=== PATIENT | female | born 1970 | race American Indian/Alaskan Native ===

== ENCOUNTER 2020-08-14 00:58 | Observation (INO) | payer SELFPAY ==
[2020-08-14] MEDS ORDERED: ASPIRIN 325 MG TAB PO ONE (01:16)
[2020-08-14] MEDS ORDERED: hydrALAZINE 20 MG/1 ML INJ IV ONE (02:07)
--- NOTE | 2020-08-14 02:10 | Emergency Department Report ---
ED Chest Pain HPI - General Chief Complaint: Chest Pain Stated Complaint: CHEST PAIN PUI?: No Time Seen by Provider: 08/14/20 01:45 Source: patient Mode of arrival: Stretcher Limitations: No Limitations - History of Present Illness Initial Comments: Patient is a 50-year-old female that presents emergency room with complaints of chest pain. Patient states the chest pain is in the right side of her chest. Patient states the chest pain is a 5 out of 10. Patient states that the chest pain is better with rest and worse with movement and palpation. Patient states that she called 911 because her chest was hurting and her blood pressure was 250/120 at home. Patient states that the ambulance picked her up and gave her aspirin and 2 nitro's. Patient states her blood pressure with EMS was 256/125. Patient states that she has been off of her blood pressure medication for 2 months. Patient states she just has not followed up with her doctor for refills or blood pressure medication changes. Patient states she is also having a headache. Patient states her headache is a dull nagging pain. Patient states is a 2 out of 10. Patient states her headache started today. Patient denies recent travel. Patient denies recent international travel. Patient denies exposure to the novel coronavirus. Patient denies sick contacts. Patient denies fever and chills. Patient denies cough. Patient denies diarrhea. Patient denies coming in contact with anybody with symptoms of the novel coronavirus. MD Complaint: chest pain -: Sudden Onset: during rest Pain Location: right chest Pain Radiation: none Severity: severe Severity scale (0 -10): 5 Quality: sharp Consistency: constant Improves With: rest Worsens With: palpation, movement re: denies: nausea, vomting, diaphoresis, dyspnea, sense of impending doom Other Symptoms: denies: cough, fever, syncope, rash, acid taste in mouth, leg swelling, palpitations, burping Treatments Prior to Arrival: aspirin, nitroglycerin Aspirin use within the Past 7 Days: (0) No - Related Data On Oral Contraceptives: No Allergies Allergy/AdvReac Type Severity Reaction Status Date / Time shellfish derived Allergy Hives Verified 08/14/20 01:16 Heart Score - HEART Score History: Slightly suspicious EKG: Non-specific Age: 45-65 Risk factors: 1-2 risk factors Troponin: < normal limit HEART Score: 3 ED Review of Systems ROS: Stated complaint: CHEST PAIN Other details as noted in HPI Constitutional: denies: chills, fever Eyes: denies: eye pain, eye discharge, vision change ENT: denies: ear pain, throat pain Respiratory: denies: cough, shortness of breath, wheezing Cardiovascular: chest pain. denies: palpitations Endocrine: no symptoms reported Gastrointestinal: denies: abdominal pain, nausea, diarrhea Genitourinary: denies: urgency, dysuria, discharge Musculoskeletal: denies: back pain, joint swelling, arthralgia Skin: denies: rash, lesions Neurological: as per HPI, headache. denies: weakness, paresthesias Psychiatric: denies: anxiety, depression Hematological/Lymphatic: denies: easy bleeding, easy bruising ED Past Medical Hx - Past Medical History Previous Medical History?: Yes Hx Hypertension: Yes - Surgical History Past Surgical History?: Yes Hx Cholecystectomy: Yes - Family History Family history: no significant - Social History Smoking Status: Current Every Day Smoker Substance Use Type: None ED Physical Exam - General Limitations: No Limitations General appearance: alert, in no apparent distress - Head Head exam: Present: atraumatic, normocephalic - Eye Eye exam: Present: normal appearance, PERRL Pupils: Present: normal accommodation - ENT ENT exam: Present: mucous membranes moist - Neck Neck exam: Present: normal inspection - Respiratory Respiratory exam: Present: normal lung sounds bilaterally, chest wall tenderness (Right-sided chest tenderness. Palpation of the right-sided chest reproduces the symptoms.). Absent: respiratory distress - Cardiovascular Cardiovascular Exam: Present: regular rate, normal rhythm. Absent: systolic murmur, diastolic murmur, rubs, gallop - GI/Abdominal GI/Abdominal exam: Present: soft, normal bowel sounds - Extremities Exam Extremities exam: Present: normal inspection - Back Exam Back exam: Present: normal inspection - Neurological Exam Neurological exam: Present: alert, oriented X3 - Psychiatric Psychiatric exam: Present: normal affect, normal mood - Skin Skin exam: Present: warm, dry, intact, normal color. Absent: rash ED Course Vital Signs 08/14/20 08/14/20 08/14/20 01:16 02:30 02:36 Temperature 97.6 F Pulse Rate 80 109 H 84 Respiratory 18 17 Rate Blood Pressure 208/112 209/112 Blood Pressure 195/111 [Left] O2 Sat by Pulse 100 99 Oximetry 08/14/20 08/14/20 08/14/20 02:46 03:16 03:42 Temperature Pulse Rate 95 H Respiratory 22 Rate Blood Pressure 188/86 189/97 188/86 Blood Pressure [Left] O2 Sat by Pulse 100 100 97 Oximetry 08/14/20 08/14/20 08/14/20 03:45 03:46 04:00 Temperature Pulse Rate 101 H Respiratory 18 18 Rate Blood Pressure 137/63 153/69 Blood Pressure 137/63 [Left] O2 Sat by Pulse 100 100 Oximetry 08/14/20 04:16 Temperature Pulse Rate Respiratory Rate Blood Pressure 153/69 Blood Pressure [Left] O2 Sat by Pulse 100 Oximetry - Reevaluation(s) Reevaluation #1: 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 Patient will be given hydralazine 20 mg IV. 08/14/20 02:10 Reevaluation #2: Patient's blood pressure is much better. Patient's headache is improving but still there. Patient will be given Tylenol 1 g. 08/14/20 03:49 Reevaluation #3: I discussed all results with patient. I discussed plan of care with patient. Patient agrees with plan of care and admission. Patient to be admitted to the hospitalist service. 08/14/20 05:31 - Consultations Consultation #1: Hospitalist consulted for admission. Hospitalist to admit patient. 08/14/20 05:31 RAMÓN score - Ramón Score Age > 65: (0) No Aspirin use within the Past 7 Days: (0) No 3 or more CAD Risk Factors: (0) No 2 or more Angina events in past 24 hrs: (0) No Known CAD with more than 50% Stenosis: (0) No Elevated Cardiac Markers: (0) No ST Deviation Greater than 0.5mm: (0) No RAMÓN Score: 0 ED Medical Decision Making - Lab Data Result diagrams: 08/14/20 01:37 08/14/20 01:37 - EKG Data -: EKG Interpreted by Me EKG shows normal: sinus rhythm, axis, intervals, QRS complexes, ST-T waves Rate: normal - Radiology Data Radiology results: report reviewed, image reviewed CHEST 1 VIEW 0138 INDICATION / CLINICAL INFORMATION: Chest Pain COMPARISON: None available. FINDINGS: SUPPORT DEVICES: None HEART / MEDIASTINUM: Mild cardiac prominence LUNGS / PLEURA: Overlying artifact causes increased density in the left base. Mildly congested appearance is seen. There may be diffuse interstitial edema as well with diffuse increased markings noted. I cannot exclude superimposed interstitial pneumonitis. Clinical correlation and follow-up are suggested. No pneumothorax. CT HEAD WITHOUT CONTRAST INDICATION: narayanan TECHNIQUE: All CT scans at this location are performed using CT dose reduction for ALARA by means of automated exposure control. COMPARISON: None available. FINDINGS: Note: Motion artifact is seen on the lower slices. BRAIN: No hemorrhage or mass effect are seen. No evidence of acute infarction is noted. ORBITS: Normal as visualized. SOFT TISSUES OF HEAD: Normal. CALVARIUM: Normal. VISUALIZED PARANASAL SINUSES AND MASTOID AIR CELLS: Clear. ADDITIONAL FINDINGS: None. IMPRESSION: No acute intracranial abnormality. - Medical Decision Making Patient is a 50-year-old female that presents emergency room with complaints of chest pain. Patient's chest pain was more on the right side of her chest on arr ival. Patient was brought in by EMS. EMS gave the patient 2 nitros and aspirin. Patient complained of headache after the nitro was given. Patient was found to 50/120 upon arrival to the ER. Patient was given 20 mg of hydralazine and the patient's blood pressure improved dramatically. Since the patient had a high blood pressure and a headache, a head CT was done which was negative for acute findings. Patient had a chest x-ray which showed pulmonary edema. Patient's labs were essentially unremarkable. Patient had a BNP of 400 and a negative troponin. Patient admitted to the hospitalist service for further evaluation treatment and rule out ACS. Prior to admission, the patient was giv en Lasix. - Differential Diagnosis Hypertensive emergency, chest pain, headache, ACS, Critical Care Time: Yes Critical care time in (mins) excluding proc time.: 35 Critical care attestation.: If time is entered above; I have spent that time in minutes in the direct care of this critically ill patient, excluding procedure time. Critical Care Time: 35 minutes ED Disposition Clinical Impression: Hypertensive emergency, Pulmonary edema cardiac cause, Noncompliance, Cardiomegaly Headache Qualifiers: Headache type: unspecified Headache chronicity pattern: acute headache Intractability: not intractable Qualified Code(s): R51.9 - Headache, unspecified Chest pain Qualifiers: Chest pain type: unspecified Qualified Code(s): R07.9 - Chest pain, unspecified Disposition: 09 OP ADMIT IP TO THIS HOSP Is pt being admited?: Yes Does the pt Need Aspirin: No Condition: Critical Instructions: Chest Pain (ED), Pulmonary Edema (ED), Hypertension (ED) Time of Disposition: 05:28
[2020-08-14 02:18] LABS: Hematocrit 40.4 % (30.3-42.9); Hemoglobin 13.1 gm/dl (10.1-14.3); Mean Corpuscular HGB Conc 33 % (30-34); Mean Corpuscular Volume 89 fl (79-97); Platelet Count 343 K/mm3 (140-440); Red Blood Count 4.54 M/mm3 (3.65-5.03); Red Cell Distribution Width 16.4 % (13.2-15.2)
--- NOTE | 2020-08-14 02:24 | XRay Report ---
CHEST 1 VIEW 0138 INDICATION / CLINICAL INFORMATION: Chest Pain COMPARISON: None available. FINDINGS: SUPPORT DEVICES: None HEART / MEDIASTINUM: Mild cardiac prominence LUNGS / PLEURA: Overlying artifact causes increased density in the left base. Mildly congested appear ance is seen. There may be diffuse interstitial edema as well with diffuse increased markings noted. I cannot exclude superimposed interstitial pneumonitis. Clinical correlation and follow-up are sugges daren. No pneumothorax. ADDITIONAL FINDINGS: No significant additional findings. Signer Name: Nazario Laughlin MD Signed: 08/14/2020 2:20 AM Workstation Name: [id number]
[2020-08-14 02:37] LABS: Blood Urea Nitrogen 15 mg/dL (7-17); Hemolysis Index 5
[2020-08-14] MEDS ORDERED: amLODIPine 5 MG TAB PO ONE (02:43)
[2020-08-14 02:53] LABS: BUN/Creatinine Ratio 21
--- NOTE | 2020-08-14 03:06 | Cat Scan Report ---
CT HEAD WITHOUT CONTRAST INDICATION: narayanan TECHNIQUE: All CT scans at this location are performed using CT dose reduction for ALARA by means of automated exposure control. COMPARISON: None available. FINDINGS: Note: Motion artifact is seen on the lower slices. BRAIN: No hemorrhage or mass effect are seen. No evidence of acute infarction is noted. ORBITS: Normal as visualized. SOFT TISSUES OF HEAD: Normal. CALVARIUM: Normal. VISUALIZED PARANASAL SINUSES AND MASTOID AIR CELLS: Clear. ADDITIONAL FINDINGS: None. IMPRESSION: No acute intracranial abnormality. Signer Name: Nazario Laughlin MD Signed: 08/14/2020 3:01 AM Workstation Name: [id number]
[2020-08-14] MEDS ORDERED: ACETAMINOPHEN 500 MG TAB PO ONE (03:37)
[2020-08-14] MEDS ORDERED: FUROSEMIDE 40 MG/4 ML INJ IV ONE (05:28)
[2020-08-14] MEDS ORDERED: NITROGLYCERIN 0.4 MG TAB SUBL SL PRN (06:22)
[2020-08-14] MEDS ORDERED: MORPHINE 4 MG/1 ML INJ IV PRN (06:22)
[2020-08-14] MEDS ORDERED: ACETAMINOPHEN 325 MG TAB PO PRN (06:22)
--- NOTE | 2020-08-14 06:30 | History and Physical Report ---
History of Present Illness Date of examination: 08/14/20 Date of admission: 08/14/20 05:31 Chief complaint: Chest pain Headache History of present illness: 50-year-old female with history of hypertension was brought to the emergency room with complaints of chest pain. chest pain is in the right side of her chest, 5 out of 10. chest pain is better with rest and worse with movement and palpation. Patient states that she called 911 because her chest was hurting and her blood pressure was 250/120 at home. Patient states that the ambulance picked her up and gave her aspirin and 2 nitro's. Patient states her blood pressure with EMS was 256/125. Patient has been off of her blood pressure medication for 2 months. Patient states she just has not followed up with her doctor for refills or blood pressure medication changes. In the emergency room patient is also complained of headache. Initial cardiac enzyme is negative. Past History Past Medical History: hypertension Medications and Allergies Allergies Allergy/AdvReac Type Severity Reaction Status Date / Time shellfish derived Allergy Hives Verified 08/14/20 01:16 Review of Systems Cardiovascular: chest pain Neurological: headaches Exam - Constitutional Vitals: Temp Pulse Resp BP Pulse Ox 97.6 F 95 H 18 154/73 100 08/14/20 01:16 08/14/20 05:33 08/14/20 05:33 08/14/20 05:33 08/14/20 05:33 General appearance: Present: no acute distress - EENT Eyes: Present: PERRL ENT: hearing intact, clear oral mucosa - Neck Neck: Present: supple, normal ROM - Respiratory Respiratory effort: normal Respiratory: bilateral: diminished - Cardiovascular Rhythm: regular Heart Sounds: Present: S1 & S2. Absent: rub, click - Extremities Extremities: pulses symmetrical, No edema Peripheral Pulses: within normal limits - Abdominal General gastrointestinal: Present: soft, non-tender, non-distended, normal bowel sounds Female genitourinary: Present: normal - Integumentary Integumentary: Present: clear, warm, dry - Musculoskeletal Musculoskeletal: gait normal, strength equal bilaterally - Psychiatric Psychiatric: appropriate mood/affect, intact judgment & insight - Neurologic Neurologic: CNII-XII intact, moves all extremities HEART Score - HEART Score EKG: Non-specific Age: 45-65 Risk factors: 1-2 risk factors Troponin: Troponin T < 0.010 ng/mL (0.00-0.029) 08/14/20 04:01 Troponin: < normal limit Results - Labs CBC & Chem 7: 08/14/20 01:37 08/14/20 01:37 Labs: Laboratory Last Values WBC 11.9 K/mm3 (4.5-11.0) H 08/14/20 01:37 RBC 4.54 M/mm3 (3.65-5.03) 08/14/20 01:37 Hgb 13.1 gm/dl (10.1-14.3) 08/14/20 01:37 Hct 40.4 % (30.3-42.9) 08/14/20 01:37 MCV 89 fl (79-97) 08/14/20 01:37 MCH 29 pg (28-32) 08/14/20 01:37 MCHC 33 % (30-34) 08/14/20 01:37 RDW 16.4 % (13.2-15.2) H 08/14/20 01:37 Plt Count 343 K/mm3 (140-440) 08/14/20 01:37 Lymph # (Auto) Associate Chemist 08/14/20 01:37 Sodium 137 mmol/L (137-145) 08/14/20 01:37 Potassium 3.8 mmol/L (3.6-5.0) 08/14/20 01:37 Chloride 102.0 mmol/L (98-107) 08/14/20 01:37 Carbon Dioxide 26 mmol/L (22-30) 08/14/20 01:37 Anion Gap 13 mmol/L 08/14/20 01:37 BUN 15 mg/dL (7-17) 08/14/20 01:37 Creatinine 0.7 mg/dL (0.6-1.2) 08/14/20 01:37 Estimated GFR > 60 ml/min 08/14/20 01:37 BUN/Creatinine Ratio 21 % 08/14/20 01:37 Glucose 88 mg/dL (65-100) 08/14/20 01:37 Calcium 9.0 mg/dL (8.4-10.2) 08/14/20 01:37 Troponin T < 0.010 ng/mL (0.00-0.029) 08/14/20 04:01 NT-Pro-B Natriuret Pep 400.2 pg/mL (0-450) 08/14/20 04:01 - Imaging and Cardiology Chest x-ray: image reviewed CT Scan - head: image reviewed Assessment and Plan - Patient Problems (1) Chest pain Current Visit: Yes Status: Acute Qualifiers: Chest pain type: unspecified Qualified Code(s): R07.9 - Chest pain, unspecified Plan to address problem: Admit the patient to the medical floor telemetry. Aspirin 325 mg p.o. daily. Lipitor 80 mg p.o. daily. We will do the serial cardiac enzyme. We also do a echocardiogram. Will consult cardiology to see the patient. We will also check lipid panel. SCD for DVT prophylaxis because of hypertension (2) Headache Current Visit: Yes Status: Acute Qualifiers: Headache type: unspecified Headache chronicity pattern: acute headache Intractability: not intractable Qualified Code(s): R51.9 - Headache, unspecified Plan to address problem: Tylenol 650 mg p.o. every 6 hours as needed. Headache most likely from hypertension. We monitored the blood pressure closely. Morphine 2 mg IV every 4 hours as needed (3) Hypertensive emergency Current Visit: Yes Status: Acute Plan to address problem: Put the patient on lisinopril 5 mg p.o. daily. Hydralazine 10 mg IV every 6 hours as needed. We will monitor the blood pressure closely. We will drop the blood pressure slowly. We also consult cardiology for evaluation and treatment. We will also check echocardiogram
[2020-08-14] MEDS ORDERED: hydrALAZINE 20 MG/1 ML INJ IV PRN (06:35)
[2020-08-14 06:51] LABS: Anisocytosis 1+; Total Cells Counted 100
[2020-08-14 06:52] LABS: Platelet Estimate Consistent w Auto
[2020-08-14] MEDS ORDERED: PANTOPRAZOLE 40 MG TAB PO SCH (07:30)
[2020-08-14 08:39] LABS: Blood Urea Nitrogen 12 mg/dL (7-17); Calcium 9.1 mg/dL (8.4-10.2); Chol/HDL Ratio 2.66 %; HDL Cholesterol 53 mg/dL (40-59); Hemolysis Index 12; LDL Cholesterol,Direct 89 mg/dL (50-130)
[2020-08-14 08:46] LABS: BUN/Creatinine Ratio 20
[2020-08-14 08:54] LABS: Basophils # (Auto) 0.1 K/mm3 (0.0-0.1); Basophils % (Auto) 0.5 % (0.0-1.8); Eosinophils # (Auto) 0.3 K/mm3 (0.0-0.4); Eosinophils % (Auto) 2.2 % (0.0-4.3); Hematocrit 42.7 % (30.3-42.9); Hemoglobin 13.5 gm/dl (10.1-14.3); Lymphocytes % (Auto) 22.7 % (13.4-35.0); Mean Corpuscular HGB Conc 32 % (30-34); Mean Corpuscular Volume 89 fl (79-97); Monocytes # (Auto) 0.7 K/mm3 (0.0-0.8); Monocytes % (Auto) 5.1 % (0.0-7.3); Platelet Count 325 K/mm3 (140-440); Red Blood Count 4.78 M/mm3 (3.65-5.03); Red Cell Distribution Width 16.7 % (13.2-15.2)
[2020-08-14] MEDS ORDERED: LISINOPRIL 5 MG TAB PO SCH (10:00)
[2020-08-14] MEDS ORDERED: DOCUSATE SODIUM 100 MG CAP PO SCH (10:00)
[2020-08-14 10:10] VITALS: BP 149/83
--- NOTE | 2020-08-14 10:33 | Event Note ---
Date: 08/14/20 Discussed with attending. Patient apparently being discharged. Consult being withdrawn.
[2020-08-15] MEDS ORDERED: ASPIRIN EC 325 MG TAB PO SCH (10:00)
== END 2020-08-14 10:30 | disposition home or self-care (01) ==
LOC: ED 00:58 → 4A 05:31
PROVIDERS: ADMIT Hospitalist; ATTEND Internal Medicine
DX: I16.1 Hypertensive emergency (principal); R07.89 Other chest pain; R51.9 Headache, unspecified; I51.7 Cardiomegaly; J81.1 Chronic pulmonary edema; F17.200 Nicotine dependence, unspecified, uncomplicated; Z91.14 Patient's other noncompliance with medication regimen
CPT/HCPCS: 36415; 70450; 71045; 80048; 80061; 83880; 84484; 85025; 93005; 96374; 96375; 99285; G0378; J0360; J1940; 85007

== ENCOUNTER 2020-09-03 20:36 | Observation (INO) | payer OTHER ==
[2020-09-03] MEDS ORDERED: ASPIRIN 325 MG TAB PO ONE (21:24)
--- NOTE | 2020-09-03 21:25 | Event Note ---
ED Screening Note Date of service: 09/03/20 Time: 21:22 ED Screening Note: 50-year-old female with a past medical history of congestive heart failure and hypertension presents to the ER today complaining of left-sided sharp chest pain. Started this evening while she was at work. States been constant in nature. She reports "a little shortness of breath". 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 She is scheduled for her first primary care doctor visit in September. She states her last stress test was a little bit over 5 years ago. Past medical history: Congestive heart failure and hypertension and tobacco use. She denies CAD/MD This initial assessment/diagnostic orders/clinical plan/treatment(s) is/are subject to change based on patients health status, clinical progression and re- assessment by fellow clinical providers in the ED. Further treatment and workup at subsequent clinical providers discretion. Patient/guardian urged not to elope from the ED as their condition may be serious if not clinically assessed and managed. Initial orders include: Cardiac work-up
[2020-09-03 21:54] LABS: Basophils # (Auto) 0.1 K/mm3 (0.0-0.1); Basophils % (Auto) 0.5 % (0.0-1.8); Eosinophils # (Auto) 0.6 K/mm3 (0.0-0.4); Eosinophils % (Auto) 4.9 % (0.0-4.3); Hematocrit 40.1 % (30.3-42.9); Hemoglobin 13.1 gm/dl (10.1-14.3); Lymphocytes # (Auto) 4.4 K/mm3 (1.2-5.4); Lymphocytes % (Auto) 35.8 % (13.4-35.0); Mean Corpuscular HGB Conc 33 % (30-34); Mean Corpuscular Volume 89 fl (79-97); Monocytes # (Auto) 0.7 K/mm3 (0.0-0.8); Monocytes % (Auto) 5.7 % (0.0-7.3); Platelet Count 387 K/mm3 (140-440); Red Blood Count 4.53 M/mm3 (3.65-5.03); Red Cell Distribution Width 16.7 % (13.2-15.2)
[2020-09-03 22:00] LABS: Alanine Aminotransferase 33 units/L (7-56); Albumin 4.2 g/dL (3.9-5); Blood Urea Nitrogen 12 mg/dL (7-17); Hemolysis Index 6
--- NOTE | 2020-09-03 22:04 | XRay Report ---
CHEST 2 VIEWS INDICATION / CLINICAL INFORMATION: Chest Pain. FINDINGS: SUPPORT DEVICES: None. HEART / MEDIASTINUM: No significant abnormality. LUNGS / PLEURA: No significant pulmonary or pleural abnormality. No pneumothorax. ADDITIONAL FINDINGS: No significant additional findings. IMPRESSION: 1. No acute findings. Signer Name: Edu Monet MD Signed: 09/03/2020 9:59 PM Workstation Name: [id number]
[2020-09-03 22:10] LABS: INR 0.9 (0.87-1.13)
[2020-09-03 22:12] LABS: BUN/Creatinine Ratio 17
[2020-09-03] MEDS ORDERED: POTASSIUM CHLORIDE ER 20 MEQ TAB PO ONE (22:39)
--- NOTE | 2020-09-03 22:40 | Emergency Department Report ---
ED General Adult HPI - General Chief complaint: Chest Pain Stated complaint: CHEST PAIN PUI?: No Time Seen by Provider: 09/03/20 21:22 Source: patient, EMS ( EMS documentation not available at time of chart dictation ), RN notes reviewed, old records reviewed Mode of arrival: Stretcher Limitations: No Limitations - History of Present Illness Initial comments: The patient was evaluated in the emergency department for symptoms described in the history of present illness. He/she was evaluated in the context of the global COVID-19 pandemic, which necessitated consideration that the patient might be at risk for infection with the virus that causes COVID-19. Institutional protocols and algorithms that pertain to the evaluation of patients at risk for COVID-19 are in a state of rapid change based on information released by regulatory bodies including the CDC and federal and state organizations. These policies and algorithms were followed during the patient's care in the emergency department. Please note that these policies, procedures and recommendations changed on a rapid basis. During the history and physical examination, I am chaperoned by ARCHANA MOON Patient is a 50-year-old female. She is not known to myself previously. She has a history of hypertension, and possibly high cholesterol. She does not have a local primary care doctor. She states that she is not , and has not delivered her given in the past 6 months/weeks. The patient presents to the ER today with complaint of left-sided chest wall pain. The pain has been present for about 2 hours. The pain does not radiate to the back, arms or neck. There is no vomiting or diaphoresis. There is no shortness of breath. No personal family history of DVT, pulmonary embolism, cardiac/coronary artery disease. Of note, patient presented with chest pain a few weeks ago at this hospital. Patient denies additional symptoms at this time. The pain is not sharp or tearing. There is no vomiting or diaphoresis or exertional shortness of breath. No leg pain or leg swelling. No surgery, oral contraceptive use, or period of immobilization. No recent aspirin consumption. -: Sudden, hour(s) Location: chest Radiation: non-radiation Quality: aching Consistency: constant Improves with: rest Worsens with: movement Associated Symptoms: denies other symptoms - Related Data Previous Rx's Medication Instructions Recorded Last Taken Type Aspirin [Aspirin BABY CHEW TAB] 81 mg PO QDAY #30 tab.chew 08/14/20 Unknown Rx Furosemide [Lasix] 20 mg PO QDAY #7 tablet 08/14/20 Unknown Rx Simvastatin 40 mg PO QHS #30 tablet 08/14/20 Unknown Rx amLODIPine 10 mg PO DAILY #30 tab 08/14/20 Unknown Rx hydroCHLOROthiazide [HCTZ] 25 mg PO QDAY #30 tablet 08/14/20 Unknown Rx Acetaminophen [Non-Aspirin Extra 500 mg PO Q6HR PRN #30 tablet 09/03/20 Unknown Rx Strength] Aspirin [Aspirin BABY CHEW TAB] 81 mg PO QDAY #30 tab.chew 09/03/20 Unknown Rx Famotidine [Pepcid] 20 mg PO BID #60 tablet 09/03/20 Unknown Rx Potassium Chloride 20 meq PO QDAY #30 packet 09/03/20 Unknown Rx Allergies Allergy/AdvReac Type Severity Reaction Status Date / Time shellfish derived Allergy Hives Verified 08/14/20 01:16 ED Review of Systems ROS: Stated complaint: CHEST PAIN Other details as noted in HPI Constitutional: denies: diaphoresis, fever Eyes: denies: eye discharge ENT: denies: congestion Respiratory: denies: shortness of breath Cardiovascular: chest pain Gastrointestinal: denies: abdominal pain, nausea, vomiting, hematemesis, melena, hematochezia Musculoskeletal: denies: back pain Neurological: denies: headache Hematological/Lymphatic: denies: easy bleeding ED Past Medical Hx - Past Medical History Previous Medical History?: Yes Hx Hypertension: Yes - Surgical History Past Surgical History?: Yes Hx Cholecystectomy: Yes - Social History Smoking Status: Current Every Day Smoker Substance Use Type: None - Medications Home Medications: Home Medications Medication Instructions Recorded Confirmed Last Taken Type Aspirin [Aspirin BABY CHEW TAB] 81 mg PO QDAY #30 tab.chew 08/14/20 Unknown Rx Furosemide [Lasix] 20 mg PO QDAY #7 tablet 08/14/20 Unknown Rx Simvastatin 40 mg PO QHS #30 tablet 08/14/20 Unknown Rx amLODIPine 10 mg PO DAILY #30 tab 08/14/20 Unknown Rx hydroCHLOROthiazide [HCTZ] 25 mg PO QDAY #30 tablet 08/14/20 Unknown Rx Acetaminophen [Non-Aspirin Extra 500 mg PO Q6HR PRN #30 tablet 09/03/20 Unknown Rx Strength] Aspirin [Aspirin BABY CHEW TAB] 81 mg PO QDAY #30 tab.chew 09/03/20 Unknown Rx Famotidine [Pepcid] 20 mg PO BID #60 tablet 09/03/20 Unknown Rx Potassium Chloride 20 meq PO QDAY #30 packet 09/03/20 Unknown Rx ED Physical Exam - General Limitations: No Limitations General appearance: alert, obese - Head Head exam: Present: atraumatic, normocephalic - Eye Eye exam: Present: normal appearance, EOMI. Absent: nystagmus - ENT ENT exam: Present: normal exam, normal orophraynx, mucous membranes moist, normal external ear exam - Neck Neck exam: Present: normal inspection, full ROM. Absent: tenderness, meningismus - Respiratory Respiratory exam: Present: normal lung sounds bilaterally, chest wall tenderness. Absent: respiratory distress, wheezes, rales, rhonchi, stridor, decreased breath sounds - Cardiovascular Cardiovascular Exam: Present: regular rate, normal rhythm, normal heart sounds. Absent: bradycardia, tachycardia, irregular rhythm, systolic murmur, diastolic murmur, rubs, gallop - GI/Abdominal GI/Abdominal exam: Present: soft. Absent: distended, tenderness, guarding, rebound, rigid, pulsatile mass - Extremities Exam Extremities exam: Present: normal inspection, full ROM, other (2+ pulses noted in the bilateral upper and lower extremities. There is no palpable cord. negative Homans sign. Muscular compartments are soft. The pelvis is stable.). Absent: pedal edema, calf tenderness - Back Exam Back exam: Present: normal inspection, full ROM. Absent: tenderness, CVA tenderness (R), CVA tenderness (L), paraspinal tenderness, vertebral tenderness - Neurological Exam Neurological exam: Present: alert, normal gait, other (No facial droop. Tongue midline. Extraocular movements intact bilaterally. Facial sensation intact to light touch in V1, V2, V3 distribution bilaterally. 5 and a 5 strength in 4 extremities. Sensation intact to light touch in 4 extremities.). Absent: motor sensory deficit - Psychiatric Psychiatric exam: Present: anxious - Skin Skin exam: Present: warm, dry, intact, normal color. Absent: rash ED Course Vital Signs 09/03/20 09/03/20 09/03/20 21:23 22:27 22:51 Temperature 98.0 F Pulse Rate 72 75 71 Respiratory 16 18 11 L Rate Blood Pressure 130/58 Blood Pressure 153/77 144/76 [Left] O2 Sat by Pulse 100 100 97 Oximetry 02/06/21 02/07/21 23:31 00:29 Temperature Pulse Rate 77 80 Respiratory 22 17 Rate Blood Pressure Blood Pressure 144/68 144/76 [Left] O2 Sat by Pulse 96 99 Oximetry - Reevaluation(s) Reevaluation #1: 09/03/20 23:20 Differential diagnosis, including but not limited to: Costochondritis, GERD, gastritis, hiatal hernia, pneumonia, coronary artery disease Assessment and plan: 50-year-old female who is not currently tachycardic, tachypneic or hypoxic, who denies DVT and pulmonary embolism risk factors, who is low risk by Wells criteria for pulmonary embolism, PERC negative EKG unchanged x1, troponin negative x 1, symptoms present for a few hours. Patient has equal pulses in the upper and lower extremities, no pulsatile abdominal mass, and an unremarkable x-ray of the chest, therefore, aortic disease is very unlikely. Patient has a heart score of 4, therefore, moderate risk for major adverse cardiac event. Given reproducibility, history and physical, do not have a high suspicion for GERD, gastritis, hiatal hernia at this time. Pneumonia is unlikely given history, physical, and x-ray findings. p Patient will be placed on manager monitoring, we will obtain EKG x2, troponin x2. We will treat her symptoms, and replete her potassium. There is no abdominal tenderness, rebound or guarding. Lipase was ordered prior to my personal evaluation. Do not clinically suspect pancreatitis at this time. . 09/04/20 00:33 Reevaluation #2: 09/04/20 00:17 Patient sleeping comfortably in stretcher and in no acute distress. Repeat EKG, repeat troponin pending. 09/04/20 00:32 Repeat EKG is reviewed and appreciated. The repeat EKG shows ST depression in multiple leads. There is poor R wave progression. Patient states she is pain- free at this time. Patient at moderate risk for major adverse cardiac event as per heart score. We have recommended admission to the medical service for accelerated cardiac risk stratification. Patient is amenable to this plan of care. Hospital physician, Dr. Jorje Ames to admit ED Medical Decision Making - Lab Data Result diagrams: 09/03/20 21:28 09/03/20 21:28 Vital Signs 02/06/21 02/06/21 02/06/21 21:23 22:27 22:51 Temperature 98.0 F Pulse Rate 72 75 71 Respiratory 16 18 11 L Rate Blood Pressure 130/58 Blood Pressure 153/77 144/76 [Left] O2 Sat by Pulse 100 100 97 Oximetry Lab Results 09/03/20 09/03/20 09/03/20 Range/Units 21:28 21:28 21:28 WBC 12.2 H (4.5-11.0) K/mm3 RBC 4.53 (3.65-5.03) M/mm3 Hgb 13.1 (10.1-14.3) gm/dl Hct 40.1 (30.3-42.9) % MCV 89 (79-97) fl MCH 29 (28-32) pg MCHC 33 (30-34) % RDW 16.7 H (13.2-15.2) % Plt Count 387 (140-440) K/mm3 Lymph % (Auto) 35.8 H (13.4-35.0) % Grant % (Auto) 5.7 (0.0-7.3) % Eos % (Auto) 4.9 H (0.0-4.3) % Baso % (Auto) 0.5 (0.0-1.8) % Lymph # (Auto) 4.4 (1.2-5.4) K/mm3 Grant # (Auto) 0.7 (0.0-0.8) K/mm3 Eos # (Auto) 0.6 H (0.0-0.4) K/mm3 Baso # (Auto) 0.1 (0.0-0.1) K/mm3 Seg Neutrophils % 53.1 (40.0-70.0) % Seg Neutrophils # 6.5 (1.8-7.7) K/mm3 PT 12.0 L (12.2-14.9) Sec. INR 0.90 (0.87-1.13) Sodium 139 (137-145) mmol/L Potassium 3.3 L (3.6-5.0) mmol/L Chloride 101.7 (98-107) mmol/L Carbon Dioxide 31 H (22-30) mmol/L Anion Gap 10 mmol/L BUN 12 (7-17) mg/dL Creatinine 0.7 (0.6-1.2) mg/dL Estimated GFR > 60 ml/min BUN/Creatinine Ratio 17 % Glucose 94 (65-100) mg/dL Calcium 9.0 (8.4-10.2) mg/dL Magnesium (1.7-2.3) mg/dL Total Bilirubin < 0.20 (0.1-1.2) mg/dL AST 24 (5-40) units/L ALT 33 (7-56) units/L Alkaline Phosphatase 153 H (35-129) units/L Total Creatine Kinase (30-135) units/L Troponin T < 0.010 (0.00-0.029) ng/mL Total Protein 7.2 (6.3-8.2) g/dL Albumin 4.2 (3.9-5) g/dL Albumin/Globulin Ratio 1.4 % Lipase 63 H (13-60) units/L Urine Opiates Screen Urine Methadone Screen Ur Barbiturates Screen Ur Phencyclidine Scrn Ur Amphetamines Screen U Benzodiazepines Scrn Urine Cocaine Screen U Marijuana (THC) Screen Drugs of Abuse Note 09/03/20 09/03/20 Range/Units 22:27 22:43 WBC (4.5-11.0) K/mm3 RBC (3.65-5.03) M/mm3 Hgb (10.1-14.3) gm/dl Hct (30.3-42.9) % MCV (79-97) fl MCH (28-32) pg MCHC (30-34) % RDW (13.2-15.2) % Plt Count (140-440) K/mm3 Lymph % (Auto) (13.4-35.0) % Grant % (Auto) (0.0-7.3) % Eos % (Auto) (0.0-4.3) % Baso % (Auto) (0.0-1.8) % Lymph # (Auto) (1.2-5.4) K/mm3 Grant # (Auto) (0.0-0.8) K/mm3 Eos # (Auto) (0.0-0.4) K/mm3 Baso # (Auto) (0.0-0.1) K/mm3 Seg Neutrophils % (40.0-70.0) % Seg Neutrophils # (1.8-7.7) K/mm3 PT (12.2-14.9) Sec. INR (0.87-1.13) Sodium (137-145) mmol/L Potassium (3.6-5.0) mmol/L Chloride (98-107) mmol/L Carbon Dioxide (22-30) mmol/L Anion Gap mmol/L BUN (7-17) mg/dL Creatinine (0.6-1.2) mg/dL Estimated GFR ml/min BUN/Creatinine Ratio % Glucose (65-100) mg/dL Calcium (8.4-10.2) mg/dL Magnesium 2.10 (1.7-2.3) mg/dL Total Bilirubin (0.1-1.2) mg/dL AST (5-40) units/L ALT (7-56) units/L Alkaline Phosphatase (35-129) units/L Total Creatine Kinase 260 H (30-135) units/L Troponin T (0.00-0.029) ng/mL Total Protein (6.3-8.2) g/dL Albumin (3.9-5) g/dL Albumin/Globulin Ratio % Lipase (13-60) units/L Urine Opiates Screen Presumptive negative Urine Methadone Screen Presumptive negative Ur Barbiturates Screen Presumptive negative Ur Phencyclidine Scrn Presumptive negative Ur Amphetamines Screen Presumptive negative U Benzodiazepines Scrn Presumptive negative Urine Cocaine Screen Presumptive negative U Marijuana (THC) Screen Presumptive negative Drugs of Abuse Note Disclamer - EKG Data -: EKG Interpreted by Wy EKG shows normal: sinus rhythm Rate: normal - EKG Data When compared to previous EKG there are: no significant change Interpretation: unchanged when compared t 09/03/20 23:19 The EKG today is unchanged from prior EKG from August 14, 2020 Sinus rhythm, 68 bpm. High left ventricular voltage. Poor R wave progression. Abnormal EKG. Not a STEMI. Normal axis. Normal intervals. - Radiology Data Radiology results: pending, report reviewed, image reviewed X-ray of the chest is negative for acute disease. Critical care attestation.: If time is entered above; I have spent that time in minutes in the direct care of this critically ill patient, excluding procedure time. ED Disposition Clinical Impression: Hypokalemia, Acute chest pain, Abnormal EKG Disposition: OP ADMIT IP TO THIS HOSP Is pt being admited?: Yes Does the pt Need Aspirin: No Condition: Good Instructions: Chest Wall Pain, Chest Pain (ED) Additional Instructions: Take the prescribed medications as needed and directed. We recommend follow-up with a service desk analyst within the next 3 to 4 days. For the patient's convenience, local cardiology groups have been listed that she may contact for follow-up with. Please return to the emergency room right away with new pain, worsening pain, migration of pain, projectile vomiting, change in mental status, confusion, inability to tolerate liquid feeds, new, worsened or different symptoms not present on the initial emergency room evaluation. Prescriptions: Aspirin [Aspirin BABY CHEW TAB] 81 mg PO QDAY #30 tab.chew Acetaminophen [Non-Aspirin Extra Strength] 500 mg PO Q6HR PRN #30 tablet PRN Reason: Pain , Severe (7-10) Famotidine [Pepcid] 20 mg PO BID #60 tablet Potassium Chloride 20 meq PO QDAY #30 packet Referrals: BABATUNDE NOVAK MD [Staff Physician] - 3-5 Days [facility] - 3-5 Days [facility] [Provider Group] - 3-5 Days Heart Score - HEART Score History: Slightly suspicious EKG: Non-specific Age: 45-65 Risk factors: > 3 risk factors or hx of atherosclerotic disease Troponin: < normal limit HEART Score: 4 - Critical Actions Critical Actions: 4-6 pts:12-16.6% risk of adverse cardiac event. Should be admitted
[2020-09-03] MEDS ORDERED: ACETAMINOPHEN 325 MG TAB PO ONE (22:49)
[2020-09-03] MEDS ORDERED: FAMOTIDINE 20 MG/2 ML INJ IV ONE (22:49)
[2020-09-03] MEDS ORDERED: KETOROLAC 30 MG/1 ML INJ IV ONE (22:49)
[2020-09-03 22:54] LABS: Amphetamine Screen,Urine PRESUMPTIVE NEGATIVE; Benzodiazepines Screen,Urine PRESUMPTIVE NEGATIVE; Cannabinoid Screen,Urine PRESUMPTIVE NEGATIVE; Cocaine Screen,Urine PRESUMPTIVE NEGATIVE; Methadone Screen,Urine PRESUMPTIVE NEGATIVE; Opiate Screen,Urine PRESUMPTIVE NEGATIVE
[2020-09-04] MEDS ORDERED: NITROGLYCERIN 0.4 MG TAB SUBL SL PRN (00:33)
[2020-09-04] MEDS ORDERED: SENNOSIDES 8.6 MG TAB PO PRN (00:55)
[2020-09-04] MEDS ORDERED: ALUM-MAG HYDROXIDE-SIMETHICONE 200-200-20MG/5ML ORAL LIQD 30 ML PO PRN (00:55)
[2020-09-04] MEDS ORDERED: MAGNESIUM HYDROXIDE (MOM) ORAL LIQD UDC PO PRN (00:55)
[2020-09-04] MEDS ORDERED: ONDANSETRON 4 MG/2 ML INJ IV PRN (00:55)
[2020-09-04] MEDS ORDERED: hydrALAZINE 20 MG/1 ML INJ IV PRN (01:00)
--- NOTE | 2020-09-04 01:09 | History and Physical Report ---
History of Present Illness Date of examination: 09/04/20 Date of admission: 09/04/20 Chief complaint: Chest Pain History of present illness: The patient was evaluated in the emergency department for symptoms described in the history of present illness. He/she was evaluated in the context of the global COVID-19 pandemic, which necessitated consideration that the patient might be at risk for infection with the virus that causes COVID-19. Institutional protocols and algorithms that pertain to the evaluation of patients at risk for COVID-19 are in a state of rapid change based on information released by regulatory bodies including the CDC and federal and state organizations. These policies and algorithms were followed during the patient's care in the emergency department. Please note that these policies, procedures and recommendations changed on a rapid basis. ED work-up shows hemoglobin 13.1, platelet is 387, potassium 3.3, sodium 139, creatinine 0.7, lipase 63, troponin T is negative WBC 12.2 checks x-ray done no acute findings. Patient seen at bedside in ED. She reports chest pain 5 out of 10 on a pain scale of 0-10. Reviewed blood work noted normal potassium. Potassium replaced Patient admits tobacco use, denies alcohol and illicit drug. I discussed tobacco use cessation with patient. Past History Past Medical History: hypertension, hyperlipidemia Past Surgical History: cholecystectomy Social history: smoking Family history: hypertension, other (Mother had Tripple bypass) Medications and Allergies Allergies Allergy/AdvReac Type Severity Reaction Status Date / Time shellfish derived Allergy Hives Verified 08/14/20 01:16 Home Medications Medication Instructions Recorded Confirmed Last Taken Type Aspirin [Aspirin BABY CHEW TAB] 81 mg PO QDAY #30 tab.chew 08/14/20 Unknown Rx Furosemide [Lasix] 20 mg PO QDAY #7 tablet 08/14/20 Unknown Rx Simvastatin 40 mg PO QHS #30 tablet 08/14/20 Unknown Rx amLODIPine 10 mg PO DAILY #30 tab 08/14/20 Unknown Rx hydroCHLOROthiazide [HCTZ] 25 mg PO QDAY #30 tablet 08/14/20 Unknown Rx Acetaminophen [Non-Aspirin Extra 500 mg PO Q6HR PRN #30 tablet 09/03/20 Unknown Rx Strength] Aspirin [Aspirin BABY CHEW TAB] 81 mg PO QDAY #30 tab.chew 09/03/20 Unknown Rx Famotidine [Pepcid] 20 mg PO BID #60 tablet 09/03/20 Unknown Rx Potassium Chloride 20 meq PO QDAY #30 packet 09/03/20 Unknown Rx Active Meds: Active Medications Acetaminophen (Acetaminophen 325 Mg Tab) 650 mg PO Q4H PRN PRN Reason: Pain MILD(1-3)/Fever >100.5/LUTZ Al Hydrox/Mg Hydrox/Simethicone (Alum-Mag Hydroxide-Simethicone 102-096-21gu/5ml Oral Liqd 30 Ml) 30 ml PO Q4H PRN PRN Reason: Indigestion Hydralazine HCl (Hydralazine 20 Mg/1 Ml Inj) 5 mg IV Q4HR PRN PRN Reason: Hypertension Magnesium Hydroxide (Magnesium Hydroxide (Mom) Oral Liqd Udc) 30 ml PO Q4H PRN PRN Reason: Constipation Nitroglycerin (Nitroglycerin 0.4 Mg Tab Subl) 0.4 mg SL .Q5MIN PRN PRN Reason: Chest Pain Ondansetron HCl (Ondansetron 4 Mg/2 Ml Inj) 4 mg IV Q8H PRN PRN Reason: Nausea And Vomiting Senna (Sennosides 8.6 Mg Tab) 8.6 mg PO Q12HR PRN PRN Reason: Constipation Sodium Chloride (Sodium Chloride 0.9% 10 Ml Flush Syringe) 10 ml IV BID SONIA Sodium Chloride (Sodium Chloride 0.9% 10 Ml Flush Syringe) 10 ml IV PRN PRN PRN Reason: LINE FLUSH Review of Systems Constitutional: fatigue, weakness Ears, nose, mouth and throat: no epistaxis, no bleeding gums Breasts: no discharge Cardiovascular: chest pain Respiratory: no congestion Gastrointestinal: no abdominal pain Genitourinary Female: no dyspareunia Musculoskeletal: no neck stiffness Integumentary: no deferred Psychiatric: no insomnia Hematologic/Lymphatic: no easy bruising Allergic/Immunologic: no urticaria Exam - Constitutional Vitals: Temp Pulse Resp BP Pulse Ox 98.0 F 80 17 144/76 99 09/03/20 21:23 09/04/20 00:29 09/04/20 00:29 09/04/20 00:29 09/04/20 00:29 General appearance: Present: no acute distress, well-nourished, obese - EENT Eyes: Present: PERRL ENT: hearing intact, clear oral mucosa - Neck Neck: Present: supple, normal ROM - Respiratory Respiratory effort: normal Respiratory: bilateral: CTA - Cardiovascular Heart Sounds: Present: S1 & S2. Absent: rub, click - Extremities Extremities: pulses symmetrical, No edema Peripheral Pulses: within normal limits - Abdominal General gastrointestinal: Present: soft, non-tender, non-distended, normal bowel sounds Female genitourinary: Present: normal - Integumentary Integumentary: Present: clear, warm, dry - Musculoskeletal Musculoskeletal: gait normal, strength equal bilaterally - Psychiatric Psychiatric: appropriate mood/affect, intact judgment & insight, cooperative - Neurologic Neurologic: CNII-XII intact, moves all extremities - Allied Health Allied health notes reviewed: nursing HEART Score - HEART Score EKG: Non-specific Age: 45-65 Risk factors: > 3 risk factors or hx of atherosclerotic disease Troponin: Troponin T < 0.010 ng/mL (0.00-0.029) 09/03/20 21:28 Troponin: < normal limit - Critical Actions Critical Actions: 4-6 pts:12-16.6% risk of adverse cardiac event. Should be admitted Results - Labs CBC & Chem 7: 09/03/20 21:28 09/03/20 21:28 Labs: Abnormal lab results 09/03/20 09/03/20 09/03/20 Range/Units 21:28 21:28 21:28 WBC 12.2 H (4.5-11.0) K/mm3 RDW 16.7 H (13.2-15.2) % Lymph % (Auto) 35.8 H (13.4-35.0) % Eos % (Auto) 4.9 H (0.0-4.3) % Eos # (Auto) 0.6 H (0.0-0.4) K/mm3 PT 12.0 L (12.2-14.9) Sec. Potassium 3.3 L (3.6-5.0) mmol/L Carbon Dioxide 31 H (22-30) mmol/L Alkaline Phosphatase 153 H (35-129) units/L Total Creatine Kinase (30-135) units/L Lipase 63 H (13-60) units/L 09/03/20 Range/Units 22:43 WBC (4.5-11.0) K/mm3 RDW (13.2-15.2) % Lymph % (Auto) (13.4-35.0) % Eos % (Auto) (0.0-4.3) % Eos # (Auto) (0.0-0.4) K/mm3 PT (12.2-14.9) Sec. Potassium (3.6-5.0) mmol/L Carbon Dioxide (22-30) mmol/L Alkaline Phosphatase (35-129) units/L Total Creatine Kinase 260 H (30-135) units/L Lipase (13-60) units/L Assessment and Plan - Patient Problems (1) Chest pain Current Visit: No Status: Acute Qualifiers: Chest pain type: unspecified Qualified Code(s): R07.9 - Chest pain, unspecified Plan to address problem: monitor blood npressure Monitor cardiac enzymes-troponn negative on admission Patient has abnormal EGK Marketing Budget Analyst consult (2) Hyperlipemia Current Visit: Yes Status: Acute Plan to address problem: continue home statin (3) Abnormal EKG Current Visit: Yes Status: Acute Plan to address problem: supply chain development manager consult Serial EKG (4) Hypokalemia Current Visit: Yes Status: Acute Plan to address problem: replaced potassium Am lab-monitor electrolytes (5) Tobacco abuse Current Visit: Yes Status: Acute Plan to address problem: Discussed tobacco use cessation Cardiovascular and neoplasms syndrome of tobacco use explained to patient Patient voiced understanding. (6) DVT prophylaxis Current Visit: Yes Status: Acute Plan to address problem: Subcutaneous Lovenox
[2020-09-04] MEDS ORDERED: hydroCHLOROthiazide 25 MG TAB PO ONE (01:51)
[2020-09-04] MEDS: ASPIRIN EC 81 MG TAB PO SCH ×2 (02:04→09:42)
[2020-09-04] MEDS: hydroCHLOROthiazide 25 MG TAB PO SCH ×2 (02:04→09:49)
[2020-09-04] MEDS ORDERED: POTASSIUM CHLORIDE ER 20 MEQ TAB PO ONE (02:31)
[2020-09-04] MEDS: ENOXAPARIN 30 MG/0.3 ML INJ SUB-Q SCH (09:42)
[2020-09-04] MEDS: amLODIPine 10 MG TAB PO SCH (09:42)
--- NOTE | 2020-09-04 10:07 | Consultation ---
History of Present Illness Consult date: 09/04/20 Requesting physician: MIK FOX Consult reason: chest pain History of present illness: Pt is a 50-year-old AA female, previously unknown to our practice, who presented with complaints of constant chest pain since last night. Pt reports she woke up around 8-9pm with pressure in her chest. Pt states "it felt like something was sitting on my chest." Pain is left-sided and radiates to her right arm. No aggr avating or relieving factors. Pain is still present upon exam this AM; however, significantly improved. Denies any associated complaints. Trop neg x 2. ECG reveals no acute ischemic changes. No acute findings on CXR. HEART Score: 2 Past History Past Medical History: hypertension Past Surgical History: cholecystectomy Social history: smoking Family history: CAD, hypertension Medications and Allergies Allergies Allergy/AdvReac Type Severity Reaction Status Date / Time shellfish derived Allergy Hives Verified 08/14/20 01:16 Home Medications Medication Instructions Recorded Confirmed Last Taken Type Aspirin [Aspirin BABY CHEW TAB] 81 mg PO QDAY #30 tab.chew 08/14/20 Unknown Rx Furosemide [Lasix] 20 mg PO QDAY #7 tablet 08/14/20 Unknown Rx Simvastatin 40 mg PO QHS #30 tablet 08/14/20 Unknown Rx amLODIPine 10 mg PO DAILY #30 tab 08/14/20 Unknown Rx hydroCHLOROthiazide [HCTZ] 25 mg PO QDAY #30 tablet 08/14/20 Unknown Rx Acetaminophen [Non-Aspirin Extra 500 mg PO Q6HR PRN #30 tablet 09/03/20 Unknown Rx Strength] Aspirin [Aspirin BABY CHEW TAB] 81 mg PO QDAY #30 tab.chew 09/03/20 Unknown Rx Famotidine [Pepcid] 20 mg PO BID #60 tablet 09/03/20 Unknown Rx Potassium Chloride 20 meq PO QDAY #30 packet 09/03/20 Unknown Rx Active Meds: Active Medications Acetaminophen (Acetaminophen 325 Mg Tab) 650 mg PO Q4H PRN PRN Reason: Pain MILD(1-3)/Fever >100.5/LUTZ Al Hydrox/Mg Hydrox/Simethicone (Alum-Mag Hydroxide-Simethicone [id number]/5ml Oral Liqd 30 Ml) 30 ml PO Q4H PRN PRN Reason: Indigestion Amlodipine Besylate (Amlodipine 10 Mg Tab) 10 mg PO DAILY [facility] Last Admin: 09/04/20 09:42 Dose: 10 mg Documented by: Aspirin (Aspirin Ec 81 Mg Tab) 81 mg PO DAILY [facility] Last Admin: 09/04/20 09:42 Dose: 81 mg Documented by: Atorvastatin Calcium (Atorvastatin 40 Mg Tab) 40 mg PO QHS [facility] Enoxaparin Sodium (Enoxaparin 30 Mg/0.3 Ml Inj) 40 mg SUB-Q QDAY [facility]; Protocol Last Admin: 09/04/20 09:42 Dose: 40 mg Documented by: Hydralazine HCl (Hydralazine 20 Mg/1 Ml Inj) 5 mg IV Q4H PRN PRN Reason: Hypertension Hydrochlorothiazide (Hydrochlorothiazide 25 Mg Tab) 25 mg PO QDAY [facility] Last Admin: 09/04/20 09:49 Dose: 25 mg Documented by: Magnesium Hydroxide (Magnesium Hydroxide (Mom) Oral Liqd Udc) 30 ml PO Q4H PRN PRN Reason: Constipation Nitroglycerin (Nitroglycerin 0.4 Mg Tab Subl) 0.4 mg SL .Q5MIN PRN PRN Reason: Chest Pain Ondansetron HCl (Ondansetron 4 Mg/2 Ml Inj) 4 mg IV Q8H PRN PRN Reason: Nausea And Vomiting Senna (Sennosides 8.6 Mg Tab) 8.6 mg PO Q12H PRN PRN Reason: Constipation Sodium Chloride (Sodium Chloride 0.9% 10 Ml Flush Syringe) 10 ml IV BID [facility] Last Admin: 09/04/20 09:42 Dose: 10 ml Documented by: Sodium Chloride (Sodium Chloride 0.9% 10 Ml Flush Syringe) 10 ml IV PRN PRN PRN Reason: LINE FLUSH Review of Systems Constitutional: no fever, no chills, no sweats Ears, nose, mouth and throat: no nasal congestion, no sore throat Cardiovascular: chest pain, no orthopnea, no palpitations, no edema, no syncope, no lightheadedness, no shortness of breath, no claudication Respiratory: no cough, no shortness of breath Gastrointestinal: no abdominal pain, no nausea, no vomiting, no diarrhea, no constipation Genitourinary Female: no pelvic pain, no flank pain, no dysuria Musculoskeletal: no neck stiffness, no neck pain, no myalgias Integumentary: no rash, no wounds Neurological: no head injury, no paralysis, no weakness, no parathesias, no numbness, no tingling, no seizures, no syncope, no vertigo, no headaches Endocrine: no cold intolerance, no heat intolerance, no polydipsia, no polyuria Hematologic/Lymphatic: no easy bruising, no easy bleeding Allergic/Immunologic: no anaphylaxis Physical Examination Last Vital Signs Temp 98.6 F 09/04/20 07:39 Pulse 81 09/04/20 07:39 Resp 18 09/04/20 07:39 BP 133/68 09/04/20 07:39 Pulse Ox 100 09/04/20 07:39 General appearance: no acute distress HEENT: Positive: EOMI, Normocephaly, Mucus Membranes Moist Neck: Positive: neck supple, trachea midline. Negative: JVD/HJR Cardiac: Positive: Reg Rate and Rhythm, S1/S2 Lungs: Positive: clear to auscultation Neuro: Positive: Grossly Intact Abdomen: Positive: Soft. Negative: Tender Skin: Negative: Rash Musculoskeletal: Normal Range of Motion Extremities: Present: upper extr. pulses, lower extr. pulses. Absent: edema Results 09/03/20 21:28 09/03/20 21:28 Cardiac Enzymes 09/03/20 Range/Units 21:28 AST 24 (5-40) units/L Coagulation 09/03/20 Range/Units 21:28 PT 12.0 L (12.2-14.9) Sec. INR 0.90 (0.87-1.13) CBC 09/03/20 Range/Units 21:28 WBC 12.2 H (4.5-11.0) K/mm3 RBC 4.53 (3.65-5.03) M/mm3 Hgb 13.1 (10.1-14.3) gm/dl Hct 40.1 (30.3-42.9) % Plt Count 387 (140-440) K/mm3 Lymph # (Auto) 4.4 (1.2-5.4) K/mm3 [place] # (Auto) 0.7 (0.0-0.8) K/mm3 Eos # (Auto) 0.6 H (0.0-0.4) K/mm3 Baso # (Auto) 0.1 (0.0-0.1) K/mm3 Comprehensive Metabolic Panel 09/03/20 Range/Units 21:28 Sodium 139 (137-145) mmol/L Potassium 3.3 L (3.6-5.0) mmol/L Chloride 101.7 (98-107) mmol/L Carbon Dioxide 31 H (22-30) mmol/L BUN 12 (7-17) mg/dL Creatinine 0.7 (0.6-1.2) mg/dL Glucose 94 (65-100) mg/dL Calcium 9.0 (8.4-10.2) mg/dL AST 24 (5-40) units/L ALT 33 (7-56) units/L Alkaline Phosphatase 153 H (35-129) units/L Total Protein 7.2 (6.3-8.2) g/dL Albumin 4.2 (3.9-5) g/dL - Imaging and Cardiology EKG: report reviewed, image reviewed - EKG Interpretation EKG: no acute changes EKG interpretations - Telemetry EKG Rhythm: Sinus Rhythm - EKG Sinus rhythms and dysrhythmias: sinus rhythm Assessment and Plan Echo pending. Plan for Lexiscan stress MPI in AM. NPO after midnight. Continue ASA & statin. Resume home antihypertensive regimen. K repletion underway per Primary. Case reviewed in conjunction with Dr. Christian, who agrees with the assessment and plan of care. - Patient Problems (1) Chest pain Current Visit: Yes Status: Acute Qualifiers: Chest pain type: unspecified Qualified Code(s): R07.9 - Chest pain, unspecified (2) Hypokalemia Current Visit: Yes Status: Acute (3) HTN (hypertension) Current Visit: Yes Status: Chronic Qualifiers: Hypertension type: essential hypertension Qualified Code(s): I10 - Essential (primary) hypertension (4) Hyperlipemia Current Visit: Yes Status: Chronic Qualifiers: Hyperlipidemia type: mixed hyperlipidemia Qualified Code(s): E78.2 - Mixed hyperlipidemia (5) Tobacco abuse Current Visit: Yes Status: Chronic (6) Medical non-compliance Current Visit: Yes Status: Chronic
--- NOTE | 2020-09-04 10:41 | Event Note ---
Date: 09/04/20 Patient seen and examined This is the second visit following midnight Patient presented with chest pain, hypokalemia Potassium repleted, will repeat level N.p.o. after midnight, plan for stress test tomorrow morning
[2020-09-04] MEDS: ACETAMINOPHEN 325 MG TAB PO PRN (17:40)
[2020-09-05] MEDS: ACETAMINOPHEN 325 MG TAB PO PRN (05:09)
[2020-09-05] MEDS ORDERED: REGADENOSON 0.4 MG/5 ML INJ IV ONE (07:14)
[2020-09-05 11:12] LABS: Basophils # (Auto) 0.1 K/mm3 (0.0-0.1); Basophils % (Auto) 0.5 % (0.0-1.8); Eosinophils # (Auto) 0.6 K/mm3 (0.0-0.4); Eosinophils % (Auto) 5.2 % (0.0-4.3); Hematocrit 39.9 % (30.3-42.9); Hemoglobin 13.1 gm/dl (10.1-14.3); Lymphocytes # (Auto) 3.9 K/mm3 (1.2-5.4); Lymphocytes % (Auto) 35.2 % (13.4-35.0); Mean Corpuscular HGB Conc 33 % (30-34); Mean Corpuscular Volume 88 fl (79-97); Monocytes # (Auto) 0.7 K/mm3 (0.0-0.8); Platelet Count 368 K/mm3 (140-440); Red Blood Count 4.55 M/mm3 (3.65-5.03); Red Cell Distribution Width 16.6 % (13.2-15.2)
[2020-09-05 11:47] LABS: Blood Urea Nitrogen 10 mg/dL (7-17); Calcium 8.9 mg/dL (8.4-10.2); Hemolysis Index 1
[2020-09-05 11:48] LABS: BUN/Creatinine Ratio 14
--- NOTE | 2020-09-05 12:12 | Treadmill Report ---
MYOCARDIAL PERFUSION IMAGING REPORT The patient is a 50-year-old female with history of hypertension, presented with very atypical chest pains of 1-2 weeks' duration along with headache and neck pain. The patient underwent pharmacological myocardial perfusion imaging test for evaluation of atypical chest pains. Baseline EKG showed sinus rhythm with no significant ST-T changes. The patient was given 0.4 mg of IV regadenoson injection and post-vasodilation,there are no significant EKG changes or arrhythmia noted. The patient tolerated the IV regadenoson well without any significant side effects. The patient had a resting perfusion images performed with a technetium 99-m sestamibi tracer followed by post-vasodilation perfusion images using the same agent and also gating was performed post-vasodilation. Following findings were noted. The patient did not have any chest pain to suggest angina. EKG showed baseline sinus rhythm and no significant ST-T changes noted to suggest ischemia, post-vasodilation, no arrhythmia noted. Perfusion images post-vasodilation showed mild apical and mid anterior wall defects, which are more or less unchanged at rest, suggesting this may be artifactual. Transient ischemic dilation ratio was found to be 0.85. Post-vasodilation gating showed ejection fraction to be 62% with end-diastolic volume of 104 and end-systolic volume of 39 mL. FINAL IMPRESSION: 1. No significant EKG changes to suggest ischemia. 2. Myocardial perfusion images using IV regadenoson as the vasodilating agent showed no significant perfusion defects to suggest ischemia and normal left ventricular systolic function of 62% noted.Normal left ventricular volumes noted. 3.This study represents a low-risk for future cardiovascular events. [facility]# [id number] NIURKA/CESAR MEDINA
[2020-09-05 12:14] VITALS: BP 145/55
[2020-09-05] MEDS: ASPIRIN EC 81 MG TAB PO SCH (12:37)
[2020-09-05] MEDS: hydroCHLOROthiazide 25 MG TAB PO SCH (12:37)
[2020-09-05] MEDS: amLODIPine 10 MG TAB PO SCH (12:37)
[2020-09-05] MEDS: ENOXAPARIN 30 MG/0.3 ML INJ SUB-Q SCH (12:37)
--- NOTE | 2020-09-05 12:37 | Progress Note ---
Assessment and Plan TTE reviewed, EF 55-60% with impaired relaxation. s/p Lexiscan MPI Stress Test today which was negative. Currently stable cardiac status. Chest pain currently resolved. AMI ruled out. Pt may discharge from cardiology standpoint on cardiac regimen. Recommend f/u in our office with Dr. Christian within 1-2 weeks. , Case reviewed in conjunction with Dr. Christian, who agrees with the assessment and plan of care. - Patient Problems (1) Chest pain Current Visit: Yes Status: Resolved Qualifiers: Chest pain type: unspecified Qualified Code(s): R07.9 - Chest pain, unspecified (2) Hypokalemia Current Visit: Yes Status: Acute (3) HTN (hypertension) Current Visit: Yes Status: Chronic Qualifiers: Hypertension type: essential hypertension Qualified Code(s): I10 - Essential (primary) hypertension (4) Hyperlipemia Current Visit: Yes Status: Chronic Qualifiers: Hyperlipidemia type: mixed hyperlipidemia Qualified Code(s): E78.2 - Mixed hyperlipidemia (5) Tobacco abuse Current Visit: Yes Status: Chronic (6) Medical non-compliance Current Visit: Yes Status: Chronic Subjective Date of service: 09/05/20 Principal diagnosis: Chest Pain Interval history: Pt is resting in bed. No current cardiac complaints. For stress testing today. Telemetry reviewed Sinus Rhythm HR 81. Objective Vital Signs Last Vital Signs Temp 96.7 F L 09/05/20 11:41 Pulse 77 09/05/20 11:41 Resp 19 09/05/20 03:51 BP 145/55 09/05/20 11:41 Pulse Ox 97 09/05/20 11:41 - Physical Examination General: Appears Well HEENT: Positive: EOMI, Normocephaly, Mucus Membranes Moist Neck: Positive: neck supple, trachea midline. Negative: JVD/HJR Cardiac: Positive: Reg Rate and Rhythm, S1/S2 Lungs: Positive: Decreased Breath Sounds, No Wheeze, Rales, Rhonchi Neuro: Positive: Grossly Intact Abdomen: Positive: Soft. Negative: Tender Skin: Negative: Rash Musculoskeletal: Normal Range of Motion Extremities: Present: upper extr. pulses, lower extr. pulses. Absent: edema - Labs and Meds CBC 09/05/20 Range/Units 10:35 WBC 11.0 (4.5-11.0) K/mm3 RBC 4.55 (3.65-5.03) M/mm3 Hgb 13.1 (10.1-14.3) gm/dl Hct 39.9 (30.3-42.9) % Plt Count 368 (140-440) K/mm3 Lymph # (Auto) 3.9 (1.2-5.4) K/mm3 [place] # (Auto) 0.7 (0.0-0.8) K/mm3 Eos # (Auto) 0.6 H (0.0-0.4) K/mm3 Baso # (Auto) 0.1 (0.0-0.1) K/mm3 Comprehensive Metabolic Panel 09/05/20 Range/Units 10:35 Sodium 137 (137-145) mmol/L Potassium 4.1 (3.6-5.0) mmol/L Chloride 102.2 (98-107) mmol/L Carbon Dioxide 28 (22-30) mmol/L BUN 10 (7-17) mg/dL Creatinine 0.7 (0.6-1.2) mg/dL Glucose 90 (65-100) mg/dL Calcium 8.9 (8.4-10.2) mg/dL - Imaging and Cardiology EKG: report reviewed, image reviewed - Telemetry EKG Rhythm: Sinus Rhythm - EKG Sinus rhythms and dysrhythmias: sinus rhythm
--- NOTE | 2020-09-05 13:18 | Discharge Summary ---
Providers - Providers Date of Admission: 09/04/20 00:55 Date of discharge: 09/05/20 Attending physician: SOCORRO ZAVALA 09/04/20 07:28 Consult to Physician [CONS] Stat Comment: Consulting Provider: MARISELA ALONSO Physician Instructions: Reason For Exam: Chest pain Primary care physician: [employer] Hospitalization Condition: Good Hospital course: This is a 50 -year-old female with h/o hypertension and hyperlipidemia presented to the hospital with Retrosternal chest pain for 1 day. Patient was evaluated in the ER, initial cardiac enzyme and EKG was unremarkable, chest x-ray showed no infiltrates. ED work-up shows hemoglobin 13.1, platelet is 387, potassium 3.3, sodium 139, creatinine 0.7, lipase 63, troponin T is negative, WBC 12.2. Patient was admitted and underwent myocardial stress test which was normal. Patient was then discharged home in stable condition with outpatient follow-up. Discharge diagnosis: Atypical chest pain, likely due to GERD Hypertension, moderately controlled, need further outpatient follow-up and medication adjustments Hyper lipidemia, continue statin and low-fat diet Hypokalemia, repleted Obesity, weight reduction diet and exercise recommended as outpatient Disposition: DC-01 TO HOME OR SELFCARE Time spent for discharge: 34 minutes Core Measure Documentation - Palliative Care Palliative Care/ Comfort Measures: Not Applicable - Core Measures Any of the following diagnoses?: none Exam - Physical Exam Narrative exam: GENERAL: well-developed and well-nourished female lying on bed appeared to be in no discomfort. HEENT: Normocephalic. Atraumatic. No conjunctival congestion or icterus. Patient has moist mucous membranes. NECK: Supple. Trachea midline. CHEST/LUNGS: Clear to auscultated bilaterally, breathing nonlabored. No wheezes crackles or rhonchi. HEART/CARDIOVASCULAR: Regular in rate and rhythm. S1 and S2 positive. ABDOMEN: Abdomen is soft, nontender. Patient has normal bowel sounds. SKIN: There is no rash. Warm and dry. NEURO: No focal motor deficit. Follows command. MUSCULOSKELETAL: No joint effusion or tenderness. EXTRIMITY: No edema, no cyanosis or clubbing. PSYCH: Cooperative. - Constitutional Vitals: Temp Pulse Resp BP Pulse Ox 96.7 F L 77 19 145/55 97 09/05/20 11:41 09/05/20 11:41 09/05/20 03:51 09/05/20 11:41 09/05/20 11:41 Plan Activity: advance as tolerated Weight Bearing Status: Weight Bear as Tolerated Diet: low fat, low salt [facility] - 3-5 Days [facility] [Provider [facility]] - 3-5 Days BABATUNDE NOVAK MD [Staff Physician] - 3-5 Days Prescriptions: Aspirin [Aspirin BABY CHEW TAB] 81 mg PO QDAY #30 tab.chew Acetaminophen [Non-Aspirin Extra Strength] 500 mg PO Q6HR PRN #30 tablet PRN Reason: Pain , Severe (7-10) Famotidine [Pepcid] 20 mg PO BID #60 tablet Potassium Chloride 20 meq PO QDAY #30 packet
[2020-09-05] MEDS ORDERED: METOPROLOL TARTRATE 25 MG TAB PO SCH (22:00)
[2020-09-06] MEDS ORDERED: ENOXAPARIN 40 MG/0.4 ML INJ SUB-Q SCH (10:00)
== END 2020-09-05 17:09 | disposition home or self-care (01) ==
LOC: ED 20:36 → 4A 09-04 00:55
PROVIDERS: ADMIT Internal Medicine Geriatric Medicine; ATTEND Internal Medicine
DX: R07.89 Other chest pain (principal); I10 Essential (primary) hypertension; E78.5 Hyperlipidemia, unspecified; E87.6 Hypokalemia; R94.31 Abnormal electrocardiogram [ECG] [EKG]; F17.200 Nicotine dependence, unspecified, uncomplicated; Z91.19 Patient's noncompliance with other medical treatment and regimen; Z90.49 Acquired absence of other specified parts of digestive tract; Z79.82 Long term (current) use of aspirin; Z79.899 Other long term (current) drug therapy
CPT/HCPCS: 36415; 71046; 78452; 80048; 80053; 80307; 82550; 83036; 83690; 83735; 84132; 84484; 85025; 85610; 93005; 93017; 93306; 96372; 96374; 96375; 99285; A9270; A9502; G0378; J1650; J1885; J2785